=== PATIENT | male | born 1990 | race African-American/Black ===

== ENCOUNTER 2020-05-04 11:26 | Emergency (ER) | payer SELFPAY ==
--- NOTE | 2020-05-04 11:29 | ED.GENADULT ---
HPI - General Adult General Chief complaint: Upper Respiratory Infection Stated complaint: cold sx Time Seen by Provider: 05/04/20 11:28 Source: patient Mode of arrival: ambulatory Limitations: no limitations History of Present Illness HPI narrative: 29-year-old male patient presents to the [facility] with complaints of cold symptoms that started last week. Patient states he has had a headache, runny nose, stuffy nose, congestion and a slight cough. Denies short chest pain or shortness of breath. Patient states his cough is a little bit productive with some yellow mucus. Denies any fevers, body aches or chills that he is aware of. Patient states he called off 2 days last week and is here to have a work note to return to work. Patient states he has continued to have symptoms but is feeling a little bit better. Patient states he has not been tested for Covid. Patient denies getting a flu shot this year. Related Data Home Medications Medication Instructions Recorded Confirmed No Home Medications 05/04/20 05/04/20 Allergies Allergy/AdvReac Type Severity Reaction Status Date / Time No Known Allergies Allergy Verified 05/04/20 11:30 Review of Systems Review of Systems: Narrative: CONSTITUTIONAL: Denies fever, chills, or sweats. EYES: Denies visual changes, redness, or discharge. ENT: Positive rhinorrhea, congestion, positive sore throat that has since resolved, denies otalgia. CARDIOVASCULAR: Denies chest pain, palpitations, or edema. RESPIRATORY: Positive mild productive cough, denies dyspnea. GASTROINTESTINAL: Denies abdominal pain, nausea, vomiting, or diarrhea. GENITOURINARY: Denies dysuria or hematuria. SKIN: Denies rash or itching. MUSCULOSKELETAL: Denies back pain, joint pain, or myalgia. NEUROLOGIC: Positive headache, denies numbness, or weakness. PSYCHIATRIC: Denies anxiety or depression. PMFSH Social History Social History Gender identity (if verbalized by the patient): Male Comments At the time of my signature I agree with nursing past medical history, surgical, social, and family history. There is no relevant family history pertinent to the presenting complaint. Exam Narrative: Exam Narrative: GENERAL: Well-appearing, well-nourished, and in no acute distress. HEAD: Normocephalic, atraumatic. EYES: PERRLA and EOMI. ENT: Nares with erythema and edema noted bilaterally no rhinorrhea or epistaxis. Mucous membranes moist. Posterior pharynx with no erythema, tonsillar Noah, exudates or lesions present. NECK: Supple. No lymphadenopathy CHEST: Clear to auscultation. No respiratory distress. Patient able talk in clear complete sentences. No tripoding noted. No labored breathing noted HEART: Regular rate and rhythm. No murmur heard. Normal peripheral pulses. ABDOMEN: Soft, nontender, nondistended, normal active bowel sounds. EXTREMITIES: Normal range of motion. No edema. SKIN: Warm, dry, no rash. NEURO: No focal deficits. Alert and oriented x3. Course Vital Signs Vital signs: Vital Signs Temperature 36.6 C 05/04/20 11:33 Pulse Rate 70 05/04/20 11:33 Respiratory Rate 16 05/04/20 11:33 Blood Pressure 142/82 H 05/04/20 11:33 Pulse Oximetry 100 05/04/20 11:33 Temperature 36.6 C 05/04/20 11:33 Pulse Rate 70 05/04/20 11:33 Respiratory Rate 16 05/04/20 11:33 Blood Pressure 142/82 H 05/04/20 11:33 Pulse Oximetry 100 05/04/20 11:33 Vital signs reviewed The patient has been informed that they may have pre-hypertension or Hypertension based on a BP reading in the department. I recommend that the patient call the primary care provider listed on their discharge instructions or a physician of their choice this week to arrange follow up for further evaluation of possible pre-hypertension or Hypertension Medical Decision Making Differential Diagnosis Differential Diagnosis: Differential diagnosis: Allergic rhinitis, chroni
[2020-05-04 11:33] VITALS: BP 142/82; PULSE 70; RESP 16; TEMP 36.6; O2SAT 100
== END 2020-05-04 11:58 | disposition home or self-care (01) ==
PROVIDERS: Emergency Provider Nurse Practitioner Family
DX: Z20.828 Contact with and (suspected) exposure to other viral communicable diseases (principal)
CPT/HCPCS: 99211; G0463

== ENCOUNTER 2020-05-06 07:05 | Outpatient (NON) | payer SELFPAY ==
[2020-05-06 23:25] LABS: SARS-CoV-2 RNA PCR Negative
== END 2020-05-06 07:06 ==
PROVIDERS: Visit Provider Nurse Practitioner Family
DX: R09.89 Other specified symptoms and signs involving the circulatory and respiratory systems (principal); Z20.828 Contact with and (suspected) exposure to other viral communicable diseases
CPT/HCPCS: 87635; C9803; U0003

== ENCOUNTER 2021-01-29 19:55 | Emergency (ER) | payer SELFPAY ==
--- NOTE | 2021-01-29 19:56 | ED.GENADULT ---
HPI - General Adult General Chief complaint: Upper Respiratory Infection Stated complaint: gay/sob Time Seen by Provider: 01/29/21 19:56 Source: patient Mode of arrival: ambulatory Limitations: no limitations History of Present Illness HPI narrative: 30-year-old male patient presents to the [facility] with complaints of runny nose, congestion headache and cough for the past 2 to 3 days. Denies fevers, body aches or chills. Patient states he was concerned about possibly having Covid requesting testing. Related Data Home Medications Medication Instructions Recorded Confirmed No Home Medications 05/04/20 01/29/21 Allergies Allergy/AdvReac Type Severity Reaction Status Date / Time No Known Allergies Allergy Verified 01/29/21 20:05 Review of Systems Review of Systems: CONSTITUTIONAL: Denies fever, chills, or sweats. EYES: Denies visual changes, redness, or discharge. ENT: Positive rhinorrhea, congestion, denies sore throat, denies otalgia. CARDIOVASCULAR: Denies chest pain, palpitations, or edema. RESPIRATORY: Positive cough, denies dyspnea. GASTROINTESTINAL: Denies abdominal pain, nausea, vomiting, or diarrhea. GENITOURINARY: Denies dysuria or hematuria. SKIN: Denies rash or itching. MUSCULOSKELETAL: Denies back pain, joint pain, or myalgia. NEUROLOGIC: Positive headache, denies numbness, or weakness. PSYCHIATRIC: Denies anxiety or depression. [facility] Surgical History Surgical History (Updated 01/29/21 @ 19:57 by ARTI Anderson) H/O inguinal hernia repair Social History Social History (Updated 01/29/21 @ 19:57 by ARTI Anderson) Smoking status: Current every day smoker Gender identity (if verbalized by the patient): Male Comments At the time of my signature I agree with nursing past medical history, surgical, social, and family history. There is no relevant family history pertinent to the presenting complaint. Exam Narrative: GENERAL: Well-appearing, well-nourished, and in no acute distress. Patient was noted to drive up to the clinic about 15 minutes prior to him actually coming in. patient was noted to be smoking marijuana in the car outside of the clinic. HEAD: Normocephalic, atraumatic. EYES: PERRLA and EOMI. eyes with injection noted to bilateral eyes. ENT: Nares with erythema and edema noted bilaterally, no rhinorrhea or epistaxis. Mucous membranes moist. Posterior pharynx with no erythema, tonsillar edema, exudates or lesions present. NECK: Supple. No lymphadenopathy CHEST: Clear to auscultation. No respiratory distress. No coughing noted during exam. Patient able talk clear complete sentences. HEART: Regular rate and rhythm. No murmur heard. Normal peripheral pulses. ABDOMEN: Soft, nontender, nondistended, normal active bowel sounds. EXTREMITIES: Normal range of motion. No edema. SKIN: Warm, dry, no rash. NEURO: No focal deficits. Alert and oriented x3. Course Vital Signs Vital signs: Vital Signs Temperature 36.8 C 01/29/21 20:00 Pulse Rate 76 01/29/21 20:00 Respiratory Rate 16 01/29/21 20:00 Blood Pressure 125/78 01/29/21 20:00 Pulse Oximetry 99 01/29/21 20:00 Temperature 36.8 C 01/29/21 20:00 Pulse Rate 76 01/29/21 20:00 Respiratory Rate 16 01/29/21 20:00 Blood Pressure 125/78 01/29/21 20:00 Pulse Oximetry 99 01/29/21 20:00 Vital signs reviewed Medical Decision Making Differential Diagnosis Differential Diagnosis: Differential diagnosis: Allergic rhinitis, chronic sinusitis, tonsillitis, acute sinusitis, infectious mononucleosis, seasonal influenza, pertussis, diphtheria, meningococcal disease, viral syndrome, viral bronchitis, RSV. My care for patient is to send him to the [facility] for Covid testing. Patient does not have severe symptoms but due to the fact that he is not vaccinated and reporting symptoms I do feel like he at least needs to be tested. Discussed with patient he needs to self isolate quarantine until at least he
[2021-01-29 20:00] VITALS: BP 125/78; PULSE 76; RESP 16; TEMP 36.8; O2SAT 99
== END 2021-01-29 20:10 | disposition home or self-care (01) ==
PROVIDERS: Emergency Provider Nurse Practitioner Family
DX: Z20.822 Contact with and (suspected) exposure to COVID-19 (principal)
CPT/HCPCS: 99211; G0463

== ENCOUNTER → 2021-02-01 01:49 | Outpatient (CLI) | payer SELFPAY ==
[2021-02-01 19:54] LABS: SARS-CoV-2 RNA PCR Negative
== END ==
PROVIDERS: Visit Provider Nurse Practitioner Family
DX: R68.89 Other general symptoms and signs (principal); Z20.822 Contact with and (suspected) exposure to COVID-19
CPT/HCPCS: C9803; U0003; U0005

== ENCOUNTER 2021-03-03 07:25 | Emergency (ER) | payer SELFPAY ==
[2021-03-03 07:34] VITALS: BP 128/77; PULSE 63; RESP 18; TEMP 36.7; O2SAT 98
--- NOTE | 2021-03-03 08:29 | ED.WOUNDLAC ---
HPI - Wound/Laceration General Chief Complaint: Wound/Laceration Stated Complaint: hand laceration Time Seen by Provider: 03/03/21 07:29 History of Present Illness HPI narrative: Patient is a 30-year-old male who presents ER with laceration to his left hand. It is in the first webspace on the dorsal aspect of the hand. Cut it on a zip tie. Superficial. Bleeding controlled. Tetanus up-to-date. No numbness or tingling. No other concerns. Related Data Home Medications Medication Instructions Recorded Confirmed No Home Medications 05/04/20 01/29/21 Allergies Allergy/AdvReac Type Severity Reaction Status Date / Time No Known Allergies Allergy Verified 03/03/21 07:39 Review of Systems Constitutional: Constitutional: Denies chills and Denies fever(s) Musculoskeletal: Musculoskeletal: Denies arthralgias, Denies joint swelling and Denies muscle cramps Integumentary/Breasts: Skin/Breast: Denies erythema and Denies rash Comments: Laceration to the left hand. Neurologic: Denies focal weakness and Denies numbness PMFSH Past Medical History Medical History (Updated 03/03/21 @ 08:42 by Deon Villagomez MD) Healthy adult male Surgical History Surgical History (Updated 01/29/21 @ 19:57 by ARTI Anderson) H/O inguinal hernia repair Social History Social History (Updated 01/29/21 @ 19:57 by ARTI Anderson) Smoking status: Current every day smoker Gender identity (if verbalized by the patient): Male Exam Narrative: GENERAL: Well-appearing, well-nourished, and in no acute distress. HEAD: Normocephalic, atraumatic. EXTREMITIES: Normal range of motion. No edema. SKIN: Warm, dry, no rash. 1 cm superficial laceration left hand dorsal aspect first webspace. Deep structures intact when visualized with a bloodless field. NEURO: No focal deficits. Alert and oriented x3. PSYCH: Normal mood and affect. Course Course Emergency Course: Wound repaired. Discharge home. Return precautions given. Vital Signs Vital signs: Vital Signs Temperature 98.1 F 03/03/21 07:34 Pulse Rate 63 03/03/21 07:34 Respiratory Rate 18 03/03/21 07:34 Blood Pressure 128/77 03/03/21 07:34 Pulse Oximetry 98 03/03/21 07:34 Temperature 98.1 F 03/03/21 07:34 Pulse Rate 63 03/03/21 07:34 Respiratory Rate 18 03/03/21 07:34 Blood Pressure 128/77 03/03/21 07:34 Pulse Oximetry 98 03/03/21 07:34 Procedures Laceration Laceration 1: Date: 03/03/21 Time: 08:40 Site: hand Side (If applicable): left Size (cm): 1 Description: linear Depth: simple, single layer Local Anesthetic: lidocaine 1% and with epi Amount of anesthesia used (mL): 2 Pre-repair: wound explored and irrigated ====== Skin Level ====== Skin layer closed with: nylon Size (cm): 4-0 Number of sutures: 3 Technique: simple, interrupted ====== Subcutaneous Layer ====== ====== Muscle Layer ====== ====== Tendon Layer ====== Discharge Plan Discharge Clinical Impression: Laceration Patient Disposition: Home, Self-Care Condition: Stable Instructions: Care For Your Stitches (ED), Laceration (ED) Additional Instructions: Remove your sutures in 10 days. You may do this at home or return to the ER. You should return to the ER if your wound is red and hot, you have pus draining from your wound, you develop fever over 100.4 ?F, you have additional concerns. Prescriptions: No Action No Home Medications RF: 0 Follow-up/Referrals: Madan Brar MD [Physician] - 1 Week PHYSICIAN,AREA FIELD MANAGER [Primary Care Provider] -
== END 2021-03-03 08:48 | disposition home or self-care (01) ==
PROVIDERS: Emergency Provider Emergency Medicine
DX: S61.412A Laceration without foreign body of left hand, initial encounter (principal); W26.8XXA Contact with other sharp object(s), not elsewhere classified, initial encounter
CPT/HCPCS: 12001; 99282

== ENCOUNTER 2021-07-21 18:25 | Emergency (ER) | payer SELFPAY ==
[2021-07-21 18:32] VITALS: BP 117/73; PULSE 64; RESP 16; TEMP 36.4; O2SAT 99
--- NOTE | 2021-07-21 18:50 | ED.NAVMDI ---
HPI - Nausea/Vomiting/Diarrhea General Chief complaint: Nausea/Vomiting/Diarrhea Stated complaint: vomiting Time Seen by Provider: 07/21/21 18:45 Source: patient Mode of arrival: ambulatory Limitations: no limitations History of Present Illness HPI Narrative: 30 yo M presents with c/o vomiting once this AM. Caused him to miss work. States that he has never vomited before. Thinks that he may have eaten bad eggs but also states he drank wine last night and smoked marijuana. Smokes marijuana often but has never smoked it with wine. Feeling fine now. All systems reviewed and negative except as noted above. Related Data Home Medications Medication Instructions Recorded Confirmed No Home Medications 05/04/20 07/21/21 Allergies Allergy/AdvReac Type Severity Reaction Status Date / Time No Known Allergies Allergy Verified 07/21/21 18:41 Review of Systems Review of Systems: CONSTITUTIONAL: Denies fever, chills, or sweats. EYES: Denies visual changes, redness, or discharge. ENT: Denies rhinorrhea, congestion, sore throat, or otalgia. CARDIOVASCULAR: Denies chest pain, palpitations, or edema. RESPIRATORY: Denies cough or dyspnea. GASTROINTESTINAL: Denies abdominal pain. Ports nausea, vomiting. GENITOURINARY: Denies dysuria or hematuria. SKIN: Denies rash or itching. MUSCULOSKELETAL: Denies back pain, joint pain, or myalgia. NEUROLOGIC: Denies headache, numbness, or weakness. PSYCHIATRIC: Denies anxiety or depression. All other systems reviewed are negative, except as documented in HPI. PMFSH Past Medical History Medical History (Updated 07/21/21 @ 18:54 by Nancy Snyder NP) Healthy adult male Surgical History Surgical History (Updated 01/29/21 @ 19:57 by ARTI Anderson) H/O inguinal hernia repair Social History Social History (Updated 01/29/21 @ 19:57 by ARTI Anderson) Smoking status: Current every day smoker Gender identity (if verbalized by the patient): Male Comments At time of signature, agree with nursing past medical, surgical, social and family history. There is no relevant family history pertinent to the presenting complaint. Exam Narrative: GENERAL: This is a well-nourished, well-developed patient, in no apparent distress. HEAD: normocephalic, atraumatic. EYES: PERRL. Sclera clear/white. Vision is grossly intact. EARS: External ears normal, auditory canals clear and without drainage, TMs normal without perforation. Hearing grossly intact. NOSE: External nose normal with no obvious nasal discharge, nares without redness, no rhinorrhea. THROAT: Mucous membranes moist, posterior pharynx clear. NECK: Neck supple, non-tender without lymphadenopathy, masses or thyromegaly. CARDIOVASCULAR: Regular rate and rhythm without murmurs, gallops, or rubs. RESPIRATORY: Clear to auscultation. Breath sounds equal bilaterally. No wheezes, rales, or rhonchi. GASTROINTESTINAL: Abdomen soft, non-tender, nondistended. Bowel sounds are active. No hepato-splenomegaly, or palpable masses. No guarding. SKIN: warm, Dry, intact with no suspicious lesions or rash, good texture and turgor. NEURO: awake, alert, and oriented to person, place and time. There were no obvious focal neurologic abnormalities. EXTREMITIES: No joint tenderness, effusion, or edema noted. No calf tenderness. Negative Homans sign bilaterally. BACK: Nontender without deformity. No CVA tenderness. Course Course Level of Care: Express Care Visit Vital Signs Vital signs: Vital Signs Temperature 36.4 C L 07/21/21 18:32 Pulse Rate 64 07/21/21 18:32 Respiratory Rate 16 07/21/21 18:32 Blood Pressure 117/73 07/21/21 18:32 Pulse Oximetry 99 07/21/21 18:32 Temperature 36.4 C L 07/21/21 18:32 Pulse Rate 64 07/21/21 18:32 Respiratory Rate 16 07/21/21 18:32 Blood Pressure 117/73 07/21/21 18:32 Pulse Oximetry 99 07/21/21 18:32 MDM - Nausea/Vomiting/Diarrhea MDM Narrative Medical decision making narr
== END 2021-07-21 19:00 | disposition home or self-care (01) ==
PROVIDERS: Emergency Provider Nurse Practitioner Family
DX: R11.2 Nausea with vomiting, unspecified (principal); F17.200 Nicotine dependence, unspecified, uncomplicated
CPT/HCPCS: 99211; G0463

== ENCOUNTER 2021-12-23 13:20 | Emergency (ER) | payer OTHER, SELFPAY ==
[2021-12-23 13:27] VITALS: BP 122/67; PULSE 73; RESP 16; TEMP 36.9; O2SAT 100
--- NOTE | 2021-12-23 13:32 | ED.EYEPROB ---
HPI - Eye Problem General Chief complaint: Eye Problems Stated complaint: rt eye pain Time Seen by Provider: 12/23/21 13:32 Source: patient Mode of arrival: ambulatory Limitations: no limitations History of Present Illness HPI Narrative: 31 yo M presents with c/o irritation, redness to R eye for 2 to 3 days. 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 States he has been itching at eye. Went to eye appt yesterday for new glasses and mentioned it to eye doctor. States they looked at eye very closely but did not see anything. States i just feel like something is in it . All systems reviewed and negative except as noted above. Related Data Allergies Allergy/AdvReac Type Severity Reaction Status Date / Time No Known Allergies Allergy Verified 07/21/21 18:41 Review of Systems Review of Systems: CONSTITUTIONAL: Denies fever, chills, or sweats. EYES: Denies visual changes. Reports redness, irritation right eye. ENT: Denies rhinorrhea, congestion, sore throat, or otalgia. CARDIOVASCULAR: Denies chest pain, palpitations, or edema. RESPIRATORY: Denies cough or dyspnea. GASTROINTESTINAL: Denies abdominal pain, nausea, vomiting, or diarrhea. GENITOURINARY: Denies dysuria or hematuria. SKIN: Denies rash or itching. MUSCULOSKELETAL: Denies back pain, joint pain, or myalgia. NEUROLOGIC: Denies headache, numbness, or weakness. PSYCHIATRIC: Denies anxiety or depression. All other systems reviewed are negative, except as documented in HPI. PMFSH Past Medical History Medical History (Updated 12/23/21 @ 13:46 by Nancy Snyder NP) Healthy adult male Surgical History Surgical History (Updated 01/29/21 @ 19:57 by ARTI Anderson) H/O inguinal hernia repair Social History Social History (Updated 01/29/21 @ 19:57 by ARTI Anderson) Smoking status: Current every day smoker Gender identity (if verbalized by the patient): Male Comments At time of signature, agree with nursing past medical, surgical, social and family history. There is no relevant family history pertinent to the presenting complaint. Exam Narrative: GENERAL: This is a well-nourished, well-developed patient, in no apparent distress. HEAD: normocephalic, atraumatic. EYES: PERRL. Right sclera erythematous, mostly to left inner corner. Vision is grossly intact. corneal abrasion noted 6 o'clock R eye under fluorescein staining and ibrahim lamp. EARS: External ears normal NOSE: External nose normal NECK: Neck supple, non-tender without lymphadenopathy, masses or thyromegaly. CARDIOVASCULAR: Regular rate and rhythm without murmurs, gallops, or rubs. RESPIRATORY: Clear to auscultation. Breath sounds equal bilaterally. No wheezes, rales, or rhonchi. SKIN: warm, Dry, intact with no suspicious lesions or rash, good texture and turgor. NEURO: awake, alert, and oriented to person, place and time. There were no obvious focal neurologic abnormalities. EXTREMITIES: No joint tenderness, effusion, or edema noted. Course Course Level of Care: Express Care Visit Vital Signs Vital signs: Vital Signs Temperature 36.9 C 12/23/21 13:27 Pulse Rate 73 12/23/21 13:27 Respiratory Rate 16 12/23/21 13:27 Blood Pressure 122/67 12/23/21 13:27 Pulse Oximetry 100 12/23/21 13:27 Oxygen Delivery Room Air 12/23/21 13:27 Temperature 36.9 C 12/23/21 13:27 Pulse Rate 73 12/23/21 13:27 Respiratory Rate 16 12/23/21 13:27 Blood Pressure 122/67 12/23/21 13:27 Pulse Oximetry 100 12/23/21 13:27 Oxygen Delivery Room Air 12/23/21 13:27 Reviewed MDM - Eye Problem MDM Narrative Medical decision making narrative: Patient is aware of diagnosis, understands and agrees to treatment plan. Anticipatory guidance given. Patient agrees to follow-up as directed and is aware of reasons to seek care at the emergency department. Portions of this record may have been created with voice recognition software Discharge P
== END 2021-12-23 13:54 | disposition home or self-care (01) ==
PROVIDERS: Emergency Provider Nurse Practitioner Family
DX: S05.01XA Injury of conjunctiva and corneal abrasion without foreign body, right eye, initial encounter (principal); X58.XXXA Exposure to other specified factors, initial encounter; F17.200 Nicotine dependence, unspecified, uncomplicated
CPT/HCPCS: 99213; A9270; G0463